=== PATIENT | male | born 1995 | race Caucasian/White ===

== ENCOUNTER 2016-09-27 18:11 | Emergency (ER) | payer MEDICAID ==
[~2016-09-27] VITALS: Ht 177.8 cm; Wt 79.0 kg
[2016-09-27 18:49] VITALS: BP 135/82
== END 2016-09-27 19:28 | disposition left against medical advice (07) ==
LOC: ER 19:15
DX: F41.9 Anxiety disorder, unspecified (principal); Z53.21 Procedure and treatment not carried out due to patient leaving prior to being seen by health care provider

== ENCOUNTER 2016-10-05 23:05 | Emergency (ER) | payer MEDICAID ==
[~2016-10-05] VITALS: Ht 175.3 cm; Wt 63.0 kg
[2016-10-05] MEDS ORDERED: LORAZEPAM 2MG/ML CPJ IV STA (23:57)
[2016-10-05] MEDS ORDERED: SODIUM CHLORIDE 0.9% 1,000 ML IV ONE (23:57)
[2016-10-06] MEDS ORDERED: TETANUS, DIPHTHERIA, PERTUSSIS VAC/PF 0.5ML (>7YR OLD) IM ONE
[2016-10-06 00:16] LABS: BASOPHILS % 0.5 % (0.0-2.0); EOSINOPHILS % 0.3 % (0.0-5.0); HEMATOCRIT. 41.5 % (42.0-52.0); HEMOGLOBIN. 14.3 g/dL (14.0-18.0); LYMPHOCYTES % 12.6 % (20.0-50.0); MEAN CORPUSCULAR HEMOGLOBIN 30.5 pg (28.0-32.0); MEAN CORPUSCULAR VOLUME 88.3 fL (80.0-94.0); MEAN PLATELET VOLUME 8.9 fl (7.4-10.4); MONOCYTES % 5.1 % (2.0-8.0); NEUTROPHILS % 81.5 % (40.0-76.0); PLATELET 219 x1000/uL (130-400); RED CELL DISTRIBUTION WIDTH 13.5 % (11.6-14.6)
[2016-10-06 00:23] LABS: CHLORIDE 113 mEq/L (98-107)
[2016-10-06 00:32] LABS: CARBON DIOXIDE 20 mEq/L (21-32); ETHANOL BLOOD 54 mg/dL
[2016-10-06 00:37] LABS: CLARITY URINE CLEAR (CLEAR); COLOR URINE YELLOW (YELLOW); GLUCOSE URINE NEGATIVE (NEGATIVE); KETONES URINE TRACE (NEGATIVE); LEUKOCYTE ESTERASE URINE NEGATIVE (NEGATIVE); NITRITE URINE NEGATIVE (NEGATIVE); OCCULT BLOOD URINE NEGATIVE (NEGATIVE); PROTEIN URINE 1+ (NEGATIVE); SPECIFIC GRAVITY URINE 1.022 (1.005-1.030); UROBILINOGEN URINE 0.2 E.U./dL (0.2-1.0)
[2016-10-06] MEDS ORDERED: LIDOCAINE HCL 1% 20ML VIAL (Pyxis) INJ MC ONE (00:45)
[2016-10-06 00:47] LABS: *AMPHETAMINES SCREEN URINE NEGATIVE (NEGATIVE); *BARBITURATES SCREEN URINE NEGATIVE (NEGATIVE); *BENZODIAZEPINES SCREEN URINE PRESUMTIVE POSITIVE (NEGATIVE); *COCAINE SCREEN URINE NEGATIVE (NEGATIVE); CANNABINOID URINE SCREEN PRESUMTIVE POSITIVE (NEGATIVE); METHADONE URINE SCREEN NEGATIVE (NEGATIVE); OPIATES URINE SCREEN NEGATIVE (NEGATIVE); PHENCYCLIDINE URINE SCREEN NEGATIVE (NEGATIVE)
[2016-10-06] MEDS ORDERED: POTASSIUM CHLORIDE 20MEQ TABLET SR PO ONE (01:00)
[2016-10-06] MEDS ORDERED: BACITRACIN ZINC OINT UDPKT TOP ONE (02:00)
[2016-10-06 03:40] VITALS: BP 147/85
== END 2016-10-06 04:52 | disposition home or self-care (01) ==
LOC: ER 23:05
DX: S61.412A Laceration without foreign body of left hand, initial encounter (principal); E87.6 Hypokalemia; F10.129 Alcohol abuse with intoxication, unspecified; F12.10 Cannabis abuse, uncomplicated; F15.10 Other stimulant abuse, uncomplicated; F17.200 Nicotine dependence, unspecified, uncomplicated; F41.9 Anxiety disorder, unspecified; F31.9 Bipolar disorder, unspecified; X58.XXXA Exposure to other specified factors, initial encounter; Y93.89 Activity, other specified; Y92.89 Other specified places as the place of occurrence of the external cause; Y99.8 Other external cause status
CPT/HCPCS: 12002; 36415; 73130; 80053; 80305; 81001; 85025; 90471; 90715; 96361; 96374; 99285; G0482; J2060; J3490; J7030; Z7610

== ENCOUNTER 2018-07-12 14:30 | Inpatient (IN) | payer MEDICAID ==
[~2018-07-12] VITALS: Ht 185.4 cm; Wt 89.4 kg
[2018-07-12] MEDS ORDERED: ONDANSETRON HCL 4MG/2ML INJ IV STA (14:50)
[2018-07-12] MEDS ORDERED: SODIUM CHLORIDE 0.9% 1,000 ML IV ONE ×2 (14:50→18:00)
[2018-07-12] MEDS ORDERED: OLANZAPINE 10 MG/VIAL IM STA (14:50)
[2018-07-12] MEDS ORDERED: LORAZEPAM 2MG/ML CPJ IM STA (14:50)
[2018-07-12] MEDS ORDERED: LORAZEPAM 2MG/ML CPJ ONE (14:56)
[2018-07-12 16:24] LABS: HEMATOCRIT. 43.8 % (42.0-52.0); HEMOGLOBIN. 15.3 g/dL (14.0-18.0); MEAN CORPUSCULAR HEMOGLOBIN 31.6 pg (28.0-32.0); MEAN CORPUSCULAR VOLUME 90.5 fL (80.0-94.0); PLATELET 263 x1000/uL (130-400); RED BLOOD CELL COUNT 4.84 mill/uL (4.7-6.1); RED CELL DISTRIBUTION WIDTH 13.5 % (11.6-14.6)
[2018-07-12 16:29] LABS: CHLORIDE 107 mEq/L (98-107)
[2018-07-12 16:33] LABS: ETHANOL BLOOD < 10 mg/dL
[2018-07-12 16:54] LABS: PLATELET ESTIMATE NORMAL
[2018-07-12 17:27] LABS: CREATINE KINASE 29507 IU/L (39-308)
[2018-07-12] MEDS ORDERED: SODIUM CHLORIDE 0.9% 1,000 ML IV SCH (17:45)
[2018-07-12] MEDS ORDERED: LORAZEPAM 2MG/ML CPJ IV ONE (18:00)
[2018-07-12] MEDS ORDERED: DIPHENHYDRAMINE 50MG/ML VIAL IV ONE (18:00)
[2018-07-12] MEDS ORDERED: ONDANSETRON HCL 4MG/2ML INJ IV PRN (18:15)
[2018-07-12 19:07] LABS: HEPATITIS B SURFACE ANTIGEN NEGATIVE
[2018-07-12] MEDS ORDERED: KCL 20MEQ/100ML PREMIX 100 ML IV SCH (19:30)
[2018-07-12 19:37] LABS: HEPATITIS A AB IGM NEGATIVE (NEGATIVE)
[2018-07-12] MEDS: SODIUM CHLORIDE 0.9% 1,000 ML IV SCH (21:03)
[2018-07-12 22:29] LABS: CLARITY URINE CLEAR (CLEAR); COLOR URINE DARK YELLOW (YELLOW); KETONES URINE 1+ (NEGATIVE); LEUKOCYTE ESTERASE URINE NEGATIVE (NEGATIVE); NITRITE URINE NEGATIVE (NEGATIVE); OCCULT BLOOD URINE 2+ (NEGATIVE); PH URINE 5.5 (4.5-8.0); PROTEIN URINE 1+ (NEGATIVE); SPECIFIC GRAVITY URINE 1.033 (1.005-1.030); UROBILINOGEN URINE 0.2 E.U./dL (0.2-1.0)
[2018-07-12] MEDS: DIPHENHYDRAMINE 50MG/ML VIAL IV PRN (23:37)
[2018-07-12] MEDS: LORAZEPAM 2MG/ML CPJ IV PRN (23:37)
[2018-07-13] VITALS (21 sets, daily range): BP systolic 119–145; BP diastolic 57–87
[2018-07-13] MEDS: HALOPERIDOL LACTATE 5MG/ML VIAL IM PRN ×3 (00:17→19:42)
[2018-07-13 05:35] LABS: *AMPHETAMINES SCREEN URINE PRESUMTIVE POSITIVE (NEGATIVE); *BARBITURATES SCREEN URINE NEGATIVE (NEGATIVE); *BENZODIAZEPINES SCREEN URINE NEGATIVE (NEGATIVE); *COCAINE SCREEN URINE NEGATIVE (NEGATIVE); METHADONE URINE SCREEN NEGATIVE (NEGATIVE); OPIATES URINE SCREEN NEGATIVE (NEGATIVE)
[2018-07-13 05:36] LABS: CANNABINOID URINE SCREEN PRESUMTIVE POSITIVE (NEGATIVE); PHENCYCLIDINE URINE SCREEN NEGATIVE (NEGATIVE)
[2018-07-13] MEDS: LORAZEPAM 2MG/ML CPJ IV PRN ×3 (05:40→19:42)
[2018-07-13] MEDS: DIPHENHYDRAMINE 50MG/ML VIAL IV PRN ×3 (05:40→19:42)
[2018-07-13 05:42] LABS: BASOPHILS % 0.4 % (0.0-2.0); EOSINOPHILS % 0.4 % (0.0-5.0); HEMATOCRIT. 41.9 % (42.0-52.0); HEMOGLOBIN. 14.5 g/dL (14.0-18.0); LYMPHOCYTES % 15.5 % (20.0-50.0); MEAN CORPUSCULAR HEMOGLOBIN 31.7 pg (28.0-32.0); MEAN CORPUSCULAR VOLUME 91.7 fL (80.0-94.0); NEUTROPHILS % 75.7 % (40.0-76.0); PLATELET 175 x1000/uL (130-400); RED BLOOD CELL COUNT 4.57 mill/uL (4.7-6.1)
[2018-07-13 05:45] LABS: CHLORIDE 111 mEq/L (98-107)
[2018-07-13 05:51] LABS: PHOSPHORUS 2.9 mg/dL (2.5-4.9)
[2018-07-13 07:44] LABS: CREATINE KINASE 21332 IU/L (39-308)
[2018-07-13] MEDS ORDERED: SODIUM CHLORIDE 0.9% 1,000 ML IV ONE (08:04)
[2018-07-13] MEDS: SODIUM CHLORIDE 0.9% 1,000 ML IV SCH ×3 (10:30→21:55)
[2018-07-13] MEDS: CITRIC ACID/SODIUM CITRATE SOLN 30ML UDC PO SCH ×2 (10:30→17:20)
[2018-07-13] MEDS ORDERED: INFLUENZA VIRUS VACCINE(AFLURIA) 0.5ML SYR IM ONE (13:00)
[2018-07-13] MEDS ORDERED: BENZ2TAB7 PO (15:22)
[2018-07-13] MEDS ORDERED: ESCI5SOL2 PO (15:22)
[2018-07-13] MEDS ORDERED: RISP1TAB26 PO (15:22)
[2018-07-13] MEDS ORDERED: LORAZEPAM 2MG/ML CPJ IV PRN (20:45)
[2018-07-13] MEDS ORDERED: DIPHENHYDRAMINE 50MG/ML VIAL IV PRN (20:45)
[2018-07-13] MEDS ORDERED: LORAZEPAM 2MG/ML CPJ IV NR (20:45)
[2018-07-13] MEDS ORDERED: DIPHENHYDRAMINE 50MG/ML VIAL IV NR (20:45)
[2018-07-13] MEDS ORDERED: HALOPERIDOL LACTATE 5MG/ML VIAL IM NR (20:45)
[2018-07-13] MEDS ORDERED: HALOPERIDOL LACTATE 5MG/ML VIAL IM PRN (20:45)
[2018-07-14 04:11] LABS: HIV SCREEN 4G Non Reactive (Non Reactive)
== END 2018-07-13 23:00 | disposition short-term general hospital (02) | DRG 351 ==
LOC: ER 14:30 → CVICU 18:03 → CANRESERV 23:13 → ENRESERV 23:13
PROVIDERS: ADMIT Internal Medicine; ATTEND Internal Medicine
DX: M62.82 Rhabdomyolysis (principal); F20.9 Schizophrenia, unspecified; F15.10 Other stimulant abuse, uncomplicated; F41.9 Anxiety disorder, unspecified; F31.9 Bipolar disorder, unspecified; E87.6 Hypokalemia; D72.829 Elevated white blood cell count, unspecified; Z79.899 Other long term (current) drug therapy
CPT/HCPCS: 36415; 71045; 76700; 80305; 80307; 80320; 80329; 82550; 83735; 84100; 84443; 86705; 86709; 86803; 87340; 87389; 93005; 93970; 96361; 96372; 96374; 96375; 99291; J1200; J1630; J2060; J2405; J3480; J3490; J7030; G0480

== ENCOUNTER 2018-08-13 03:05 | Emergency (ER) | payer MEDICAID ==
[~2018-08-13] VITALS: Ht 175.3 cm; Wt 77.0 kg
[~2018-08-13 03:05] MED LIST: BENZ2TAB7 PO; ESCI5SOL2 PO; RISP1TAB26 PO
[2018-08-13] MEDS ORDERED: LORAZEPAM 2MG/ML CPJ IV STA (04:06)
[2018-08-13] MEDS ORDERED: LORAZEPAM 2MG/ML CPJ IM ONE (04:15)
[2018-08-13 04:29] LABS: BASOPHILS % 0.4 % (0.0-2.0); HEMATOCRIT. 45.9 % (42.0-52.0); HEMOGLOBIN. 15.8 g/dL (14.0-18.0); LYMPHOCYTES % 7.1 % (20.0-50.0); MEAN CORPUSCULAR HEMOGLOBIN 30.6 pg (28.0-32.0); MEAN CORPUSCULAR VOLUME 88.6 fL (80.0-94.0); MEAN PLATELET VOLUME 9.1 fl (7.4-10.4); MONOCYTES % 8.1 % (2.0-8.0); NEUTROPHILS % 84.4 % (40.0-76.0); PLATELET 339 x1000/uL (130-400); RED BLOOD CELL COUNT 5.18 mill/uL (4.7-6.1); RED CELL DISTRIBUTION WIDTH 12.9 % (11.6-14.6)
[2018-08-13 04:34] LABS: CHLORIDE 104 mEq/L (98-107)
[2018-08-13 04:38] LABS: ETHANOL BLOOD < 10 mg/dL
[2018-08-13 04:40] LABS: CLARITY URINE CLOUDY (CLEAR); COLOR URINE DARK YELLOW (YELLOW); KETONES URINE TRACE (NEGATIVE); LEUKOCYTE ESTERASE URINE NEGATIVE (NEGATIVE); NITRITE URINE NEGATIVE (NEGATIVE); OCCULT BLOOD URINE 3+ (NEGATIVE); PROTEIN URINE 2+ (NEGATIVE); SPECIFIC GRAVITY URINE 1.035 (1.005-1.030); UROBILINOGEN URINE 0.2 E.U./dL (0.2-1.0)
[2018-08-13 04:55] LABS: OPIATES URINE SCREEN NEGATIVE (NEGATIVE); PHENCYCLIDINE URINE SCREEN NEGATIVE (NEGATIVE)
[2018-08-13 04:56] LABS: *AMPHETAMINES SCREEN URINE PRESUMTIVE POSITIVE (NEGATIVE); *BARBITURATES SCREEN URINE NEGATIVE (NEGATIVE); *BENZODIAZEPINES SCREEN URINE NEGATIVE (NEGATIVE); *COCAINE SCREEN URINE NEGATIVE (NEGATIVE); CANNABINOID URINE SCREEN PRESUMTIVE POSITIVE (NEGATIVE); METHADONE URINE SCREEN NEGATIVE (NEGATIVE)
[2018-08-13] MEDS ORDERED: HALOPERIDOL LACTATE 5MG/ML VIAL IM ONE (05:30)
[2018-08-13] MEDS ORDERED: ACETAMINOPHEN 325MG TABLET PO STA (07:08)
[2018-08-13] MEDS ORDERED: CEFTRIAXONE 1 G PREMIX 50 ML IV ONE (07:15)
[2018-08-13] MEDS ORDERED: SODIUM CHLORIDE 0.9% 1000ML BAG (SEPSIS BOLUS) IV ONE (07:15)
[2018-08-13 07:39] LABS: BASOPHILS % 0.5 % (0.0-2.0); EOSINOPHILS % 0.1 % (0.0-5.0); HEMATOCRIT. 46.2 % (42.0-52.0); HEMOGLOBIN. 15.8 g/dL (14.0-18.0); LYMPHOCYTES % 8.1 % (20.0-50.0); MEAN CORPUSCULAR HEMOGLOBIN 30.4 pg (28.0-32.0); MEAN CORPUSCULAR VOLUME 88.8 fL (80.0-94.0); MEAN PLATELET VOLUME 8.9 fl (7.4-10.4); MONOCYTES % 6.7 % (2.0-8.0); NEUTROPHILS % 84.6 % (40.0-76.0); PLATELET 285 x1000/uL (130-400); RED CELL DISTRIBUTION WIDTH 13.3 % (11.6-14.6)
[2018-08-13 13:30] VITALS: BP 128/74
== END 2018-08-13 13:30 | disposition home or self-care (01) ==
LOC: ER 03:05
DX: F20.9 Schizophrenia, unspecified (principal); F12.10 Cannabis abuse, uncomplicated; F19.10 Other psychoactive substance abuse, uncomplicated; F15.10 Other stimulant abuse, uncomplicated; Z79.899 Other long term (current) drug therapy
CPT/HCPCS: 36415; 71045; 80053; 80305; 80320; 81003; 83605; 83690; 85025; 87040; 87086; 87804; 96365; 96372; 99284; J0696; J1630; J2060; J7030; G0480

== ENCOUNTER 2018-11-04 11:53 | Emergency (ER) | payer MEDICAID ==
[~2018-11-04] VITALS: Ht 180.3 cm; Wt 71.0 kg
[2018-11-04] MEDS ORDERED: LORAZEPAM 2MG/ML CPJ IV STA (12:26)
[2018-11-04] MEDS ORDERED: SODIUM CHLORIDE 0.9% 1,000 ML IV ONE (12:26)
[2018-11-04 12:56] LABS: BASOPHILS % 0.3 % (0.0-2.0); EOSINOPHILS % 0.1 % (0.0-5.0); HEMOGLOBIN. 17.5 g/dL (14.0-18.0); LYMPHOCYTES % 13.3 % (20.0-50.0); MEAN CORPUSCULAR HEMOGLOBIN 31.3 pg (28.0-32.0); MEAN CORPUSCULAR VOLUME 89.5 fL (80.0-94.0); MEAN PLATELET VOLUME 9.1 fl (7.4-10.4); MONOCYTES % 7.1 % (2.0-8.0); NEUTROPHILS % 79.2 % (40.0-76.0); PLATELET 227 x1000/uL (130-400); RED BLOOD CELL COUNT 5.59 mill/uL (4.7-6.1); RED CELL DISTRIBUTION WIDTH 14.1 % (11.6-14.6)
[2018-11-04 13:29] LABS: CHLORIDE 100 mEq/L (98-107)
[2018-11-04 13:34] LABS: ETHANOL BLOOD < 10 mg/dL
[2018-11-04 14:07] LABS: CREATINE KINASE 7224 IU/L (39-308)
[2018-11-04] MEDS ORDERED: OLANZAPINE 10 MG/VIAL IM ONE (15:15)
[2018-11-04 17:40] VITALS: BP 124/84
== END 2018-11-04 17:53 | disposition home or self-care (01) ==
LOC: ER 11:53
DX: T43.621A Poisoning by amphetamines, accidental (unintentional), initial encounter (principal); T43.625A Adverse effect of amphetamines, initial encounter; Y92.9 Unspecified place or not applicable; F20.9 Schizophrenia, unspecified
CPT/HCPCS: 36415; 80053; 80320; 82550; 85025; 96372; 96374; 99283; J2060; J3490; J7030; G0480

== ENCOUNTER 2018-11-05 02:25 | Emergency (ER) | payer MEDICAID ==
[~2018-11-05] VITALS: Ht 167.6 cm; Wt 70.0 kg
[2018-11-05] MEDS ORDERED: RISPERIDONE 1MG TABLET PO SCH (03:00)
[2018-11-05] MEDS ORDERED: BENZTROPINE MESYLATE 1MG TABLET PO SCH (03:00)
[2018-11-05 03:20] LABS: BASOPHILS % 0.3 % (0.0-2.0); EOSINOPHILS % 0.3 % (0.0-5.0); HEMATOCRIT. 46.9 % (42.0-52.0); HEMOGLOBIN. 16.5 g/dL (14.0-18.0); LYMPHOCYTES % 22.9 % (20.0-50.0); MEAN CORPUSCULAR HEMOGLOBIN 31.3 pg (28.0-32.0); MEAN CORPUSCULAR VOLUME 89.2 fL (80.0-94.0); MEAN PLATELET VOLUME 9.3 fl (7.4-10.4); MONOCYTES % 9.9 % (2.0-8.0); NEUTROPHILS % 66.6 % (40.0-76.0); PLATELET 207 x1000/uL (130-400); RED BLOOD CELL COUNT 5.26 mill/uL (4.7-6.1); RED CELL DISTRIBUTION WIDTH 13.9 % (11.6-14.6)
[2018-11-05 03:40] LABS: CHLORIDE 104 mEq/L (98-107)
[2018-11-05 03:41] LABS: ETHANOL BLOOD 30 mg/dL
[2018-11-05] MEDS ORDERED: IBUPROFEN 600MG TABLET PO ONE (03:45)
[2018-11-05 04:58] LABS: CLARITY URINE CLEAR (CLEAR); COLOR URINE YELLOW (YELLOW); KETONES URINE NEGATIVE (NEGATIVE); LEUKOCYTE ESTERASE URINE NEGATIVE (NEGATIVE); NITRITE URINE NEGATIVE (NEGATIVE); OCCULT BLOOD URINE NEGATIVE (NEGATIVE); PH URINE 6.5 (4.5-8.0); PROTEIN URINE NEGATIVE (NEGATIVE); SPECIFIC GRAVITY URINE 1.007 (1.005-1.030)
[2018-11-05 05:36] LABS: *BARBITURATES SCREEN URINE NEGATIVE (NEGATIVE)
[2018-11-05 05:37] LABS: *AMPHETAMINES SCREEN URINE PRESUMTIVE POSITIVE (NEGATIVE); *BENZODIAZEPINES SCREEN URINE NEGATIVE (NEGATIVE); *COCAINE SCREEN URINE NEGATIVE (NEGATIVE); METHADONE URINE SCREEN NEGATIVE (NEGATIVE); OPIATES URINE SCREEN NEGATIVE (NEGATIVE); PHENCYCLIDINE URINE SCREEN NEGATIVE (NEGATIVE)
[2018-11-05 05:38] LABS: CANNABINOID URINE SCREEN PRESUMTIVE POSITIVE (NEGATIVE)
[2018-11-05] MEDS ORDERED: POTASSIUM CHLORIDE 20MEQ TABLET SR PO ONE (07:45)
[2018-11-05 11:00] VITALS: BP 111/76
== END 2018-11-05 12:30 | disposition home or self-care (01) ==
LOC: ER 02:25
DX: F41.9 Anxiety disorder, unspecified (principal); F15.10 Other stimulant abuse, uncomplicated; F20.9 Schizophrenia, unspecified
CPT/HCPCS: 36415; 71045; 80305; 80320; 99284; G0480

== ENCOUNTER 2018-11-09 20:21 | Emergency (ER) | payer MEDICAID ==
[~2018-11-09] VITALS: Ht 180.3 cm; Wt 84.0 kg
[2018-11-09] MEDS ORDERED: SODIUM CHLORIDE 0.9% 1,000 ML IV ONE ×2 (20:28→22:57)
[2018-11-09] MEDS ORDERED: LORAZEPAM 2MG/ML CPJ IM STA (20:28)
[2018-11-09] MEDS ORDERED: OLANZAPINE 10 MG/VIAL IM STA (20:28)
[2018-11-09] MEDS ORDERED: LORAZEPAM 2MG/ML CPJ IV ONE ×3 (21:45→23:00)
[2018-11-09 22:06] LABS: HEMATOCRIT. 49.2 % (42.0-52.0); HEMOGLOBIN. 16.6 g/dL (14.0-18.0); MEAN CORPUSCULAR HEMOGLOBIN 31.2 pg (28.0-32.0); MEAN CORPUSCULAR VOLUME 92.5 fL (80.0-94.0); MEAN PLATELET VOLUME 9.5 fl (7.4-10.4); PLATELET 290 x1000/uL (130-400); RED BLOOD CELL COUNT 5.32 mill/uL (4.7-6.1)
[2018-11-09 22:09] LABS: CHLORIDE 107 mEq/L (98-107)
[2018-11-09 22:13] LABS: ETHANOL BLOOD < 10 mg/dL
[2018-11-09 22:18] LABS: CREATINE KINASE 925 IU/L (39-308)
[2018-11-09 22:21] LABS: CREATINE KINASE MB FRACTION 2.6 ng/mL (0.5-3.6)
[2018-11-09 22:25] LABS: PLATELET ESTIMATE NORMAL
[2018-11-09 23:23] LABS: CLARITY URINE CLEAR (CLEAR); COLOR URINE YELLOW (YELLOW); KETONES URINE TRACE (NEGATIVE); LEUKOCYTE ESTERASE URINE NEGATIVE (NEGATIVE); NITRITE URINE NEGATIVE (NEGATIVE); OCCULT BLOOD URINE NEGATIVE (NEGATIVE); PROTEIN URINE TRACE (NEGATIVE); UROBILINOGEN URINE 0.2 E.U./dL (0.2-1.0)
[2018-11-09 23:33] LABS: *AMPHETAMINES SCREEN URINE PRESUMTIVE POSITIVE (NEGATIVE); *BARBITURATES SCREEN URINE NEGATIVE (NEGATIVE); *BENZODIAZEPINES SCREEN URINE NEGATIVE (NEGATIVE)
[2018-11-09 23:34] LABS: *COCAINE SCREEN URINE NEGATIVE (NEGATIVE); CANNABINOID URINE SCREEN PRESUMTIVE POSITIVE (NEGATIVE); METHADONE URINE SCREEN NEGATIVE (NEGATIVE); OPIATES URINE SCREEN NEGATIVE (NEGATIVE); PHENCYCLIDINE URINE SCREEN NEGATIVE (NEGATIVE)
[2018-11-10] MEDS ORDERED: LORAZEPAM 2MG/ML CPJ IV ONE (05:45)
[2018-11-10 06:51] VITALS: BP 125/72
== END 2018-11-10 07:07 | disposition home or self-care (01) ==
LOC: ER 20:21
DX: G92 Toxic encephalopathy (principal); R00.0 Tachycardia, unspecified; R00.2 Palpitations; F29 Unspecified psychosis not due to a substance or known physiological condition; T50.905A Adverse effect of unspecified drugs, medicaments and biological substances, initial encounter; Y92.9 Unspecified place or not applicable; F17.210 Nicotine dependence, cigarettes, uncomplicated
CPT/HCPCS: 36415; 80053; 80305; 80307; 80320; 80329; 81003; 82550; 82553; 83690; 83880; 84443; 84484; 85025; 96372; 96374; 96376; 99284; J2060; J7030; G0480

== ENCOUNTER 2021-03-21 11:26 | Emergency (ER) | payer MEDICAID ==
[~2021-03-21] VITALS: Ht 180.3 cm; Wt 83.0 kg
[~2021-03-21 11:26] MED LIST changes: -RISP1TAB26 PO; +RISP1TAB97 PO
[2021-03-21] MEDS ORDERED: SODIUM CHLORIDE 0.9% 1,000 ML IV ONE (11:45)
[2021-03-21 12:21] LABS: BASOPHILS % 0.4 % (0.0-2.0); EOSINOPHILS % 0.7 % (0.0-5.0); HEMATOCRIT. 48.8 % (42.0-52.0); HEMOGLOBIN. 16.7 g/dL (14.0-18.0); MEAN CORPUSCULAR HEMOGLOBIN 31.1 pg (28.0-32.0); MEAN CORPUSCULAR VOLUME 90.9 fL (80.0-94.0); MEAN PLATELET VOLUME 8.8 fl (7.4-10.4); MONOCYTES % 6.3 % (2.0-8.0); NEUTROPHILS % 71.6 % (40.0-76.0); PLATELET 237 x1000/uL (130-400); RED BLOOD CELL COUNT 5.37 mill/uL (4.7-6.1); RED CELL DISTRIBUTION WIDTH 13.2 % (11.6-14.6)
[2021-03-21 12:26] LABS: CHLORIDE 104 mEq/L (98-107)
[2021-03-21 12:31] LABS: ETHANOL BLOOD 105 mg/dL
[2021-03-21 13:12] LABS: CLARITY URINE CLEAR (CLEAR); COLOR URINE YELLOW (YELLOW); KETONES URINE NEGATIVE (NEGATIVE); LEUKOCYTE ESTERASE URINE NEGATIVE (NEGATIVE); NITRITE URINE NEGATIVE (NEGATIVE); OCCULT BLOOD URINE NEGATIVE (NEGATIVE); PROTEIN URINE NEGATIVE (NEGATIVE); SPECIFIC GRAVITY URINE 1.005 (1.005-1.030)
[2021-03-21 13:57] LABS: *AMPHETAMINES SCREEN URINE PRESUMTIVE POSITIVE (NEGATIVE); *BARBITURATES SCREEN URINE NEGATIVE (NEGATIVE); *BENZODIAZEPINES SCREEN URINE NEGATIVE (NEGATIVE); *COCAINE SCREEN URINE NEGATIVE (NEGATIVE); METHADONE URINE SCREEN NEGATIVE (NEGATIVE)
[2021-03-21 13:58] LABS: CANNABINOID URINE SCREEN PRESUMTIVE POSITIVE (NEGATIVE); OPIATES URINE SCREEN NEGATIVE (NEGATIVE); PHENCYCLIDINE URINE SCREEN NEGATIVE (NEGATIVE)
[2021-03-21] MEDS ORDERED: SODIUM CHLORIDE 0.9% 250 ML IV NR (14:00)
[2021-03-21] MEDS ORDERED: MAGN296S70 PO (15:54)
[2021-03-21 15:57] VITALS: BP 138/88
== END 2021-03-21 17:01 | disposition home or self-care (01) ==
LOC: ER 11:26
DX: R07.9 Chest pain, unspecified (principal); F15.129 Other stimulant abuse with intoxication, unspecified; F10.129 Alcohol abuse with intoxication, unspecified; Y90.5 Blood alcohol level of 100-119 mg/100 ml; R94.5 Abnormal results of liver function studies; F20.9 Schizophrenia, unspecified; K59.00 Constipation, unspecified
CPT/HCPCS: 36415; 71045; 76705; 80053; 80305; 80320; 81003; 82248; 84484; 85025; 93005; 99285; J7030; G0480